=== PATIENT | female | born 1985 | race Caucasian/White ===

== ENCOUNTER 2016-11-13 22:59 | Emergency (ER) | payer OTHER, BC ==
[2016-11-13 23:15] VITALS: BP 114/77
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
== END 2016-11-14 00:18 | disposition home or self-care (01) ==
LOC: ER 22:59
DX: Z77.21 Contact with and (suspected) exposure to potentially hazardous body fluids (principal); Y08.89XA Assault by other specified means, initial encounter; Y93.89 Activity, other specified; Y92.199 Unspecified place in other specified residential institution as the place of occurrence of the external cause; Y99.0 Civilian activity done for income or pay